=== PATIENT | female | born 1990 | race American Indian/Alaskan Native ===

== ENCOUNTER 2018-06-04 20:25 | Emergency (ER) | payer SELFPAY ==
[2018-06-05] MEDS ORDERED: MAGNESIUM SULFATE 2GM/50ML 0 GM/0 ML BAG IV ONE (04:55)
[2018-06-05] MEDS ORDERED: SOLU-Medrol ONE (04:55)
== END 2018-06-04 21:49 | disposition left against medical advice (07) ==
LOC: ED 20:25
DX: L98.9 Disorder of the skin and subcutaneous tissue, unspecified (principal); Z53.21 Procedure and treatment not carried out due to patient leaving prior to being seen by health care provider
CPT/HCPCS: J2930; J3475